=== PATIENT | female | born 1995 | race Asian ===

== ENCOUNTER 2018-05-10 19:34 | Emergency (ER) | payer OTHER ==
[~2018-05-10] VITALS: Ht 162.6 cm; Wt 102.0 kg
[2018-05-10 20:58] LABS: BASOPHILS % (AUTO) 0.4 % (0.0-2.0); EOSINOPHILS % (AUTO) 2.2 % (1.0-6.0); HEMATOCRIT 43.9 % (36-46); HEMOGLOBIN 14.6 g/dL (12.0-16.0); LYMPHOCYTES # (AUTO) 2.1 K/uL (1.0-4.8); LYMPHOCYTES % (AUTO) 14.9 % (22.0-44.0); MEAN CORPUSCULAR HEMOGLOBIN 28.5 pg (26.0-34.0); MEAN CORPUSCULAR HGB CONC 33.4 G/dL (31.0-37.0); MEAN CORPUSCULAR VOLUME 85 fL (80-100); MONOCYTES % (AUTO) 7.1 % (2.0-9.0); NEUTROPHILS # (AUTO) 10.6 K/uL (1.8-7.7); NEUTROPHILS % (AUTO) 75.4 % (40.0-70.0); PLATELET COUNT (AUTO) 328 K/uL (150-450); RED BLOOD CELL COUNT(AUTO) 5.14 MIL/uL (4.00-5.20); RED CELL DISTRIBUTION WIDTH 13.1 % (11.5-14.5)
[2018-05-10 21:01] LABS: ANION GAP 6 mmol/L (8-16); CALCIUM, TOTAL 9.4 mg/dL (8.8-10.5); CARBON DIOXIDE 30 mmol/L (22-29); CHLORIDE 102 mmol/L (98-107); CREATININE 0.86 mg/dL (0.60-1.30); GLOMERULAR FILTR. RATE CALC > 60 mL/min (>60); GLUCOSE,RANDOM 103 mg/dL (70-110); POTASSIUM 3.7 mmol/L (3.5-5.1); SODIUM SERUM 138 mmol/L (136-145); UREA NITROGEN, BLOOD 13 mg/dL (7-18)
[2018-05-10 21:13] LABS: ALANINE AMINOTRANSFERASE 26 U/L (12-78); ALBUMIN 3.7 g/dL (3.4-5.0); ALKALINE PHOSPHATASE 63 U/L (46-116); ASPARTATE AMINOTRANSFERASE 19 U/L (15-37); BILIRUBIN,TOTAL 0.4 mg/dL (0.1-1.0); HCG,QUANTITATIVE < 1 mIU/mL (0-6); LIPASE 261 U/L (73-393); TOTAL PROTEIN, SERUM 8.3 g/dL (6.4-8.2)
[2018-05-10 23:22] LABS: APPEARANCE,URINE CLOUDY (CLEAR); BILIRUBIN,URINE NEGATIVE (NEGATIVE); GLUCOSE, URINE (UA) NEGATIVE (NEGATIVE); KETONES,URINE NEGATIVE (NEGATIVE); LEUKOCYTE ESTERASE ,URINE NEGATIVE (NEGATIVE); NITRATE,URINE NEGATIVE (NEGATIVE); OCCULT BLOOD,URINE NEGATIVE (NEGATIVE); PROTEIN,URINE NEGATIVE (NEGATIVE); UROBILINOGEN,URINE 0.2 mg/dL (<=1.0)
[2018-05-10] MEDS ORDERED: SODIUM CHLORIDE 0.9% 100 ML ONE (23:36)
[2018-05-10] MEDS ORDERED: IOVERSOL 350 MG/ML 150 ML VIAL ONE (23:36)
[2018-05-10] MEDS ORDERED: ONDANSETRON HCL 4 MG/2 ML VIAL IVP ONE (23:45)
[2018-05-11 04:43] VITALS: BP 117/60
[2018-05-11] MEDS ORDERED: KETOROLAC TROMETHAMINE 30 MG/ML VIAL IVP ONE (04:45)
== END 2018-05-11 06:29 | disposition home or self-care (01) ==
LOC: EMS 19:36
DX: K52.9 Noninfective gastroenteritis and colitis, unspecified (principal); Z87.891 Personal history of nicotine dependence
CPT/HCPCS: 36415; 74177; 80053; 81003; 83690; 84702; 85025; 96374; 99284; J2405; J7050; Q9967

== ENCOUNTER 2018-08-03 23:54 | Emergency (ER) | payer OTHER ==
[~2018-08-03] VITALS: Ht 160 cm; Wt 104.5 kg
[2018-08-04 00:10] VITALS: BP 116/75
[2018-08-04] MEDS ORDERED: KETOROLAC TROMETHAMINE 60 MG/2 ML VIAL IM ONE (01:30)
[2018-08-04] MEDS ORDERED: BACLOFEN 10 MG TABLET PO ONE (01:30)
== END 2018-08-04 01:56 | disposition home or self-care (01) ==
LOC: EMS 23:56
DX: S46.912A Strain of unspecified muscle, fascia and tendon at shoulder and upper arm level, left arm, initial encounter (principal); F17.210 Nicotine dependence, cigarettes, uncomplicated; X50.9XXA Other and unspecified overexertion or strenuous movements or postures, initial encounter; Y93.89 Activity, other specified; Y92.89 Other specified places as the place of occurrence of the external cause; Y99.8 Other external cause status
CPT/HCPCS: 73030; 81025; 96372; 99283; J1885

== ENCOUNTER 2019-01-20 00:40 | Emergency (ER) | payer OTHER ==
[~2019-01-20] VITALS: Ht 162.6 cm; Wt 104.5 kg
[2019-01-20 02:18] LABS: APPEARANCE,URINE CLOUDY (CLEAR); BILIRUBIN,URINE NEGATIVE (NEGATIVE); GLUCOSE, URINE (UA) NEGATIVE (NEGATIVE); KETONES,URINE NEGATIVE (NEGATIVE); LEUKOCYTE ESTERASE ,URINE SMALL (NEGATIVE); NITRATE,URINE NEGATIVE (NEGATIVE); OCCULT BLOOD,URINE NEGATIVE (NEGATIVE); PROTEIN,URINE NEGATIVE (NEGATIVE)
[2019-01-20 02:25] LABS: BACTERIA,URINE Rare /HPF (None Seen); RBC,URINE 0-2 /HPF (0-2); SQUAMOUS EPITHELIAL CELL,UR Many /LPF (None Seen)
[2019-01-20] MEDS ORDERED: LIDOCAINE 5% TRANSDERMAL PATCH TD ONE (04:30)
[2019-01-20] MEDS ORDERED: CYCLOBENZAPRINE HCL 10 MG TABLET PO ONE (04:30)
[2019-01-20] MEDS ORDERED: KETOROLAC TROMETHAMINE 30 MG/ML VIAL IM ONE (04:30)
[2019-01-20] MEDS ORDERED: ACETAMINOPHEN 500 MG TABLET PO ONE (04:30)
[2019-01-20 05:30] VITALS: BP 120/68
== END 2019-01-20 06:12 | disposition home or self-care (01) ==
LOC: EMS 00:41
DX: M54.5 Low back pain (principal); F17.210 Nicotine dependence, cigarettes, uncomplicated
CPT/HCPCS: 81001; 96372; 99284; J1885

== ENCOUNTER 2019-06-09 15:05 | Emergency (ER) | payer OTHER ==
[~2019-06-09] VITALS: Ht 162.6 cm; Wt 104.5 kg
[2019-06-09] MEDS ORDERED: CEPH-582 PO (15:20)
[2019-06-09 16:28] VITALS: BP 119/73
== END 2019-06-09 16:32 | disposition home or self-care (01) ==
LOC: EMS 15:06
DX: L02.211 Cutaneous abscess of abdominal wall (principal); J45.909 Unspecified asthma, uncomplicated; F17.290 Nicotine dependence, other tobacco product, uncomplicated

== ENCOUNTER 2019-06-12 20:01 | Emergency (ER) | payer OTHER ==
[~2019-06-12] VITALS: Ht 160 cm; Wt 104.5 kg
[~2019-06-12 20:01] MED LIST: CEPH-582 PO
[2019-06-12] MEDS ORDERED: SULF1TAB41 PO (20:06)
[2019-06-12] MEDS ORDERED: PROZ10 PO (20:06)
[2019-06-12] MEDS ORDERED: LIDOCAINE 1% 10 ML VIAL INJ ONE (22:45)
[2019-06-12] MEDS ORDERED: LIDOCAINE/PF 1% 2 ML VIAL IM ONE (23:45)
[2019-06-12] MEDS ORDERED: KETOROLAC TROMETHAMINE 60 MG/2 ML VIAL IM ONE (23:45)
[2019-06-12] MEDS ORDERED: CefTRIAXone SODIUM 1 GM/VIAL IM ONE (23:45)
[2019-06-13 00:15] VITALS: BP 132/76
== END 2019-06-13 00:33 | disposition home or self-care (01) ==
LOC: EMS 20:01
DX: L02.211 Cutaneous abscess of abdominal wall (principal); J45.909 Unspecified asthma, uncomplicated; Z79.899 Other long term (current) drug therapy
CPT/HCPCS: 10060; 87070; 96372; 99284; J0696; J1885; J3490

== ENCOUNTER 2019-06-14 15:20 | Emergency (ER) | payer OTHER ==
[~2019-06-14] VITALS: Ht 160 cm; Wt 90.9 kg
[~2019-06-14 15:20] MED LIST changes: -CEPH-582 PO; +PROZ10 PO; +SULF1TAB41 PO
[2019-06-14 16:48] VITALS: BP 130/92
== END 2019-06-14 17:04 | disposition home or self-care (01) ==
LOC: EMS 15:20
DX: Z48.00 Encounter for change or removal of nonsurgical wound dressing (principal); J45.909 Unspecified asthma, uncomplicated

== ENCOUNTER 2019-06-16 15:21 | Emergency (ER) | payer OTHER ==
[~2019-06-16] VITALS: Ht 160 cm; Wt 104.5 kg
[~2019-06-16 15:21] MED LIST changes: -SULF1TAB41 PO
[2019-06-16 16:48] VITALS: BP 108/70
== END 2019-06-16 17:12 | disposition home or self-care (01) ==
LOC: EMS 15:22
DX: Z48.00 Encounter for change or removal of nonsurgical wound dressing (principal); J45.909 Unspecified asthma, uncomplicated

== ENCOUNTER 2020-02-23 14:50 | Emergency (ER) | payer OTHER ==
[~2020-02-23] VITALS: Ht 162.6 cm; Wt 109.1 kg
[2020-02-23] MEDS ORDERED: ALBUTEROL SULFATE 2.5 MG/0.5 ML NEB SOLUTION NEB ONE (16:00)
[2020-02-23] MEDS ORDERED: MethylPREDNISolone SOD SUCC 125 MG/2 ML VIAL IVP ONE (16:00)
[2020-02-23] MEDS ORDERED: IPRATROPIUM BROMIDE 0.5 MG/2.5 ML NEB SOLUTION NEB ONE (16:00)
[2020-02-23 16:57] VITALS: BP 142/73
[2020-02-23] MEDS ORDERED: MethylPREDNISolone SOD SUCC 125 MG/2 ML VIAL IM ONE (17:00)
[2020-02-23 17:40] LABS: COVID AG,FIA SOURCE NASOPHARYNGEAL
== END 2020-02-23 17:26 | disposition home or self-care (01) ==
LOC: EMS 14:54
DX: J45.909 Unspecified asthma, uncomplicated (principal); Z20.828 Contact with and (suspected) exposure to other viral communicable diseases
CPT/HCPCS: 71045; 87426; 94640; 96372; 99284; C9803; J2930; J7613

== ENCOUNTER 2020-08-19 20:11 | Emergency (ER) | payer OTHER ==
[~2020-08-19] VITALS: Ht 172.7 cm; Wt 104.5 kg
[~2020-08-19 20:11] MED LIST changes: +FLUO10CA24 PO; -PROZ10 PO
[2020-08-19] MEDS ORDERED: TIOT4MIS3 PUFF (20:33)
[2020-08-19] MEDS ORDERED: ALBU8HFA IH (20:33)
[2020-08-19] MEDS ORDERED: ALBUTEROL SULFATE 5 MG/ML 20 ML NEB SOLN [BULK] NEB ONE (21:15)
[2020-08-19] MEDS ORDERED: IPRATROPIUM BROMIDE 0.5 MG/2.5 ML NEB SOLUTION NEB ONE (21:15)
[2020-08-19] MEDS ORDERED: PredniSONE 20 MG TABLET PO ONE (23:00)
[2020-08-20 00:54] VITALS: BP 133/78
== END 2020-08-20 00:58 | disposition home or self-care (01) ==
LOC: EMS 20:13
DX: J45.909 Unspecified asthma, uncomplicated (principal)
CPT/HCPCS: 71045; 94640; 99283; J7512; 94644; J7611

== ENCOUNTER 2022-08-20 12:05 | Emergency (ER) | payer OTHER ==
[~2022-08-20] VITALS: Ht 162.6 cm; Wt 113.6 kg
[~2022-08-20 12:05] MED LIST changes: +ALBU18HF12 IH; +TIOT4MIS3 PUFF
[2022-08-20] MEDS ORDERED: KETOROLAC TROMETHAMINE 30 MG/ML VIAL IVP ONE (14:15)
[2022-08-20] MEDS ORDERED: IOHEXOL 350 MG/ML 100 ML VIAL ONE (14:30)
[2022-08-20] MEDS ORDERED: SODIUM CHLORIDE 0.9% 100 ML ONE (14:30)
[2022-08-20 14:54] LABS: BASOPHILS % (AUTO) 0.9 % (0.0-2.0); EOSINOPHILS % (AUTO) 5.2 % (1.0-6.0); HEMATOCRIT 40.7 % (36-46); HEMOGLOBIN 13.5 g/dL (12.0-16.0); LYMPHOCYTES # (AUTO) 2.6 K/uL (1.0-4.8); MEAN CORPUSCULAR HGB CONC 33.3 G/dL (31.0-37.0); MEAN CORPUSCULAR VOLUME 84 fL (80-100); MONOCYTES # (AUTO) 0.8 K/uL (0.1-1.0); MONOCYTES % (AUTO) 6.7 % (2.0-9.0); NEUTROPHILS # (AUTO) 7.3 K/uL (1.8-7.7); NEUTROPHILS % (AUTO) 64.2 % (40.0-70.0); PLATELET COUNT (AUTO) 314 K/uL (150-450); RED BLOOD CELL COUNT(AUTO) 4.83 MIL/uL (4.00-5.20); RED CELL DISTRIBUTION WIDTH 13.1 % (11.5-14.5)
[2022-08-20 14:57] LABS: COVID AG,FIA SOURCE NASOPHARYNGEAL
[2022-08-20 15:02] LABS: ANION GAP 7 mmol/L (8-16); CALCIUM, TOTAL 8.9 mg/dL (8.8-10.5); CARBON DIOXIDE 27 mmol/L (22-29); CHLORIDE 104 mmol/L (98-107); CREATININE 0.73 mg/dL (0.60-1.30); GLOMERULAR FILTR. RATE CALC > 60 mL/min (>60); GLUCOSE,RANDOM 93 mg/dL (70-110); POTASSIUM 3.6 mmol/L (3.5-5.1); SODIUM SERUM 138 mmol/L (136-145)
[2022-08-20 15:11] LABS: LACTIC ACID 1.4 mmol/L (0.4-2.0)
[2022-08-20 15:17] LABS: ALANINE AMINOTRANSFERASE 16 U/L (12-78); ALBUMIN 3.4 g/dL (3.4-5.0); ALKALINE PHOSPHATASE 69 U/L (46-116); ASPARTATE AMINOTRANSFERASE 15 U/L (15-37); BILIRUBIN,TOTAL 0.5 mg/dL (0.1-1.0); HCG,QUANTITATIVE < 1 mIU/mL (0-6)
[2022-08-20 15:48] LABS: RAPID GROUP A STREP POSITIVE (NEGATIVE)
[2022-08-20 15:51] LABS: INFLUENZA TYPE A NEGATIVE FOR TYPE A (NEGATIVE); INFLUENZA TYPE B NEGATIVE FOR TYPE B (NEGATIVE)
[2022-08-20] MEDS ORDERED: AMOX500C2 PO (17:08)
[2022-08-20] MEDS ORDERED: IBUP-1492 PO (17:08)
[2022-08-20] MEDS ORDERED: AMOXICILLIN TRIHYDRATE 250 MG CAPSULE PO ONE (17:15)
[2022-08-20 17:45] VITALS: BP 126/78
== END 2022-08-20 18:10 | disposition home or self-care (01) ==
LOC: EMS 12:07
DX: J02.0 Streptococcal pharyngitis (principal); R59.0 Localized enlarged lymph nodes; J45.909 Unspecified asthma, uncomplicated; F17.210 Nicotine dependence, cigarettes, uncomplicated; Z20.822 Contact with and (suspected) exposure to COVID-19
CPT/HCPCS: 99285; 96374; 70491; 87426; 80053; 83605; 84702; 85025; 87430; 87804; 36415; 84145; J1885; Q9967; J7050

== ENCOUNTER 2023-06-29 13:49 | Emergency (ER) | payer OTHER ==
[~2023-06-29] VITALS: Ht 162.6 cm; Wt 111.0 kg
[~2023-06-29 13:49] MED LIST changes: +AMOX500C2 PO; +IBUP-1492 PO
[2023-06-29 14:02] VITALS: TEMP 97.6
[2023-06-29] MEDS ORDERED: CIPR500T10 PO (14:51)
[2023-06-29 15:02] VITALS: BP 114/78; PULSE 79; RESP 16
== END 2023-06-29 15:06 | disposition home or self-care (01) ==
LOC: EMS 13:49
DX: S91.331A Puncture wound without foreign body, right foot, initial encounter (principal); J45.909 Unspecified asthma, uncomplicated; F17.210 Nicotine dependence, cigarettes, uncomplicated; X58.XXXA Exposure to other specified factors, initial encounter; Y93.89 Activity, other specified; Y92.89 Other specified places as the place of occurrence of the external cause; Y99.8 Other external cause status
CPT/HCPCS: 99283; Z7502